=== PATIENT | male | born 1990 | race Caucasian/White ===

== ENCOUNTER 2018-02-28 16:04 | Emergency (ER) | payer OTHER ==
[~2018-02-28] VITALS: Ht 172.7 cm; Wt 87.5 kg
[2018-02-28 16:09] VITALS: Ht 172.7 cm; Wt 87.5 kg
[2018-02-28 17:41] VITALS: BP 126/83
== END 2018-02-28 17:41 | disposition home or self-care (01) ==
LOC: ED 16:04
DX: M79.10 Myalgia, unspecified site (principal); R50.9 Fever, unspecified